=== PATIENT | female | born 1950 | race Caucasian/White ===

== ENCOUNTER 2017-08-26 06:33 | Day surgery (SDC) | payer OTHER ==
[~2017-08-26 06:33] MED LIST: LIDOCAINE 1% 2 ML INJ ID PRN; LR 1,000 ML IV ONE
[2017-08-26 07:05] VITALS: PULSE 91
[2017-08-26] MEDS ORDERED: PROPOFOL/EMULSION 500 MG/50 ML BOTTLE IV ONE (07:58)
[2017-08-26] MEDS ORDERED: MIDAZOLAM 2 MG/2 ML VIAL ONE (07:59)
--- NOTE | 2017-08-26 08:02 | PDGENHP ---
History & Physical Chief Complaint: Dypshagia Relevant Physical Exam: GED: NAD. Cardiac: RRR. Lungs: CTA B. Abd: Soft, nt, nd
--- NOTE | 2017-08-26 08:10 | PDANEPAE ---
ANE Past Medical History - Cardiovascular History Hx Hypertension: Yes Hx Arrhythmias: Yes Hx Coronary Artery / Peripheral Vascular Disease: No Hx CHF / Valvular Disease: No Cardiovascular History Comment: benign PVCs. SEEN BY [facility] FOR RAPID HR - ECHO ON CHART - Pulmonary History Hx COPD: No Hx Asthma/Reactive Airway Disease: No Hx Recent Upper Respiratory Infection: Yes Hx Oxygen in Use at Home: Yes Hx Sleep Apnea: No Sleep Apnea Screening Result - Last Documented: Positive Pulmonary History Comment: RUNS 94-95% ON ROOM AIR - Neurologic History Hx Cerebrovascular Accident: No Hx Seizures: No Hx Dementia: No - Endocrine History Hx Diabetes: No Endocrine History Comment: Hypothyroid-med. - Renal History Hx Renal Disorders: No - Liver History Hx Hepatic Disorders: No - Neurological & Psychiatric Hx Hx Neurological and Psychiatric Disorders: Yes Neurological / Psychiatric History Comment: situational anxiety. - Cancer History Hx Cancer: Yes Cancer History Comment: Melanoma L foot-removed & chemo. - Congenital Disorder History Hx Congenital Disorders: No - GI History Hx Gastrointestinal Disorders: Yes Gastrointestinal History Comment: chronic heartburn. Difficulty swallowing. Constipation due to pain meds. - Other Health History Other Health History: Ros[place]ce[place]. Generalized fibromyalgia, and arthritis. Bruise easily. - Chronic Pain History Chronic Pain: Yes (generalized) - Surgical History Prior Surgeries: ACL knee surgery. Csection 1981. 1989-breast implants & rhinoplasty. 1997-R knee scope Bilateral cataract surg. ANE Review of Systems Review of Systems: - Exercise capacity METS (RN): 4 METS ANE Patient History - Allergies Allergies/Adverse Reactions: No Known Allergies Allergy (Verified 08/20/17 15:50) - Home Medications Home Medications: Oxycodone HCl 11/25/15 [Last Taken 08/25/17] Amlodipine Besylate 08/20/17 [Last Taken Unknown] Porcine Thyroid 08/20/17 [Last Taken 08/26/17] Telmisartan 08/20/17 [Last Taken 08/26/17] - NPO status NPO Since - Liquids (Date): 08/26/17 NPO Since - Liquids (Time): 04:00 NPO Since - Solids (Date): 08/25/17 NPO Since - Solids (Time): 20:30 - Smoking Hx Smoking Status: Never smoked - Family Anes Hx Family Hx Anesthesia Complications: no ANE Labs/Vital Signs - Vital Signs Blood Pressure: 137/90 Heart Rate: 91 Respiratory Rate: 16 O2 Sat (%): 94 Height: 167.64 cm Weight: 129.274 kg ANE Physical Exam - Airway Neck exam: FROM, increased neck circumference, short neck Mallampati Score: Class 2 Mouth exam: normal dental/mouth exam, small mouth opening - Pulmonary Pulmonary: no respiratory distress, no rales or rhonchi, reduced air movement - Cardiovascular Cardiovascular: regular rate and rhythym, no murmur, rub, or gallop - ASA Status ASA Status: III ANE Anesthesia Plan Anesthesia Plan: GA with mask
[2017-08-26] MEDS ORDERED: NALOXONE HCL 0.4 MG/ML INJ IVP PRN (08:11)
[2017-08-26] MEDS ORDERED: LR 500 ML IV PRN (08:11)
[2017-08-26] MEDS ORDERED: ALBUTEROL 3 ML DEYVIAL IH PRN (08:11)
[2017-08-26] MEDS ORDERED: ONDANSETRON 4 MG/2 ML VIAL IVP PRN (08:11)
--- NOTE | 2017-08-26 08:30 | GIREPORT ---
[facility] - Endoscopy Department Patient Name: Veronika Day Procedure Date: 08/26/2017 7:05 AM Patient Type: Outpatient Attending MD/ ER Physician: Martin Ziegler MD Procedure: Upper GI endoscopy Indications: Dysphagia Providers: Martin Ziegler MD Medicines: Monitored Anesthesia Care Complications: No immediate complications. Description of Procedure: After obtaining informed consent, the endoscope was passed under direct vision. Throughout the procedure, the patient's blood pressure, pulse, and oxygen saturations were monitored continuously. The Endoscope was intro duced through the mouth, and advanced to the second part of duodenum. The [facility] er GI endoscopy was accomplished without difficulty. The patient tolerated th e procedure well. Findings: One moderate benign-appearing, intrinsic stenosis was found 35 cm from the incisors. This measured 1.2 cm (inner diameter) x less than one cm (in length) and was traversed. A TTS dilator was passed through the scope. Dilation with a 12-13.5-15 mm balloon dilator was performed to 15 mm. Mucosal disruption was seen without perforation. A 5 cm hiatal hernia was present. Localized moderate inflammation characterized by congestion (edema), erosions, erythema, friability and granularity was found in the gastric body and in the gastric antrum. Biopsies were taken with a cold forceps for histology. Verification of patient identification for the specimen was done by the physician and nurse using the patient's name and date. Estimated blood loss was minimal. The examined duodenum was normal. Estimated Blood Loss: Estimated blood loss: none. Post Op Diagnosis: - Benign-appearing esophageal stenosis. Dilated. - 5 cm hiatal hernia. - Gastritis. Biopsied. - Normal examined duodenum. Recommendation: - Discharge patient to home (with escort). - Resume previous diet. - Use Prilosec (omeprazole) 40 mg PO BID for 2 months, then decrease do se to 20mg orally daily. - Repeat EGD with anesthesia at the hospital as needed for recurrent dsyphagia. - Await pathology results. Results are available within 10 days. - Thank you for allowing me to participate in the care of your patient. Attending Participation: I personally performed the entire procedure. Martin Ziegler MD Martin Ziegler MD 08/26/2017 8:29:21 AM This report has been signed electronicallyDamendoza Ziegler MD Number of Addenda: 0 Note Initiated On: 08/26/2017 7:05 AM [email or web address]
[2017-08-26 08:40] VITALS: TEMP 97.5
--- NOTE | 2017-08-26 09:10 | POSTANESTH ---
Post Anesthetic Evaluation Cardiovascular Status: Normal, Stable, Similar to Pre-Op Cond Respiratory Status: Normal, Stable, Similar to Pre-op Cond. Level of Consciousness/Mental Status: Can Participate in Eval Pain Control: Adequate, Prn Tx Ordered Nausea/Vomiting Control: Adequate, Prn Tx Ordered Complications Possibly Related to Anesthesia: None Noted
[2017-08-26 09:56] VITALS: BP 131/83; RESP 16; O2SAT 95
== END 2017-08-26 09:52 | disposition home or self-care (01) ==
LOC: FSGY 06:33
PROVIDERS: ATTEND Internal Medicine Gastroenterology
PROC: 0DB68ZX Excision of Stomach, Via Natural or Artificial Opening Endoscopic, Diagnostic (ICD-10-PCS; principal; 2017-08-26 08:00)
DX: K29.70 Gastritis, unspecified, without bleeding (principal); K44.9 Diaphragmatic hernia without obstruction or gangrene; R13.10 Dysphagia, unspecified
CPT/HCPCS: 43239; C1726; J2250; J2704